=== PATIENT | female | born 1975 | race Caucasian/White ===

== ENCOUNTER → 2019-10-12 07:38 | Outpatient (CLI) | payer OTHER, SELFPAY ==
--- NOTE | ~2019-10-12 | US_ITS ---
EXAMINATION: US abdomen complete DATE: 10/12/2019 08:21 INDICATION: Right upper quadrant abdominal pain. TECHNIQUE: Multiple grayscale and Doppler ultrasound images of the abdomen were obtained. COMPARISON: CT 06/01/2018, 11/25/2017 FINDINGS: Abdominal aorta is normal in caliber. Inferior vena cava is normal. The visualized portions of the head, body, and tail of the pancreas are normal. The liver is normal without focal lesion. Th ere is normal flow in main portal vein. The gallbladder is normal in size. No gallstones or gallbladd er wall thickening. There was no sonographic Fuchs sign. The common duct is mildly dilated to 7 mm. The kidneys are normal in size. There is an 11 mm stone in right renal pelvis with mild right hydrone phrosis. The spleen is normal in size. IMPRESSION: 1. 11 mm stone in right renal pelvis with mild right hydronephrosis, stable from 06/01/2018. 2. Mild dilatation of the common duct, stable from 11/25/2017. Correlate with liver function tests to determine if this finding is clinically significant. Reviewed, dictated and finalized at location A. IMPRESSION: 1. 11 mm stone in right renal pelvis with mild right hydronephrosis, stable fro 06/01/2018. 2. Mild dilatation of the common duct, stable from 11/25/2017. Correlate with li valerie function tests to determine if this finding is clinically significant.
== END ==
PROVIDERS: PCP Family Medicine Adolescent Medicine; Visit Provider Family Medicine Adolescent Medicine
DX: R10.11 Right upper quadrant pain (principal)
CPT/HCPCS: 76700

== ENCOUNTER 2019-11-14 11:21 | Outpatient (CLI) | payer OTHER, SELFPAY ==
--- NOTE | ~2019-11-14 | CT_ITS ---
EXAMINATION: CT abdomen pelvis w con EXAM DATE: 11/14/2019 11:49 INDICATION: Endometrial cancer, right flank pain. History kidney stones. Total hysterectomy. TECHNIQUE: Spiral CT of the abdomen and pelvis was performed following intravenous injection of 100 m L Omnipaque 350. Axial, coronal and sagittal images were reviewed. The dose-length product (DLP) fo r this examination was 1090.12 mGy-cm. The exposure was tailored according to patient size (auto mA exposure control), and iterative reconstruction (ASIR) was used as additional dose reduction techniqu e. Comparison is made to prior examination from 06/01/2018. FINDINGS: The liver, spleen, adrenal glands and pancreas are unremarkable. Gallbladder is unremarkab le. No biliary obstruction. There is a right renal pelvic stone measuring 1.2 cm with persistent mil d to moderate caliectasis. No adjacent inflammation or hydroureter. Potentially could be partially or intermittently obstructing. Similar appearance on the prior exam. Patient has had hysterectomy. The bladder is unremarkable. There is no retroperitoneal or pelvic lymphadenopathy. The appendix is normal. The stomach and small bowel are unremarkable. There is expected amount of c olonic stool. No free intraperitoneal gas. The heart is normal in size. There are no pericardial or pleural effusions. The lung bases are unremarkable. There is sclerotic focus in the left iliac b one measuring 1.5 cm, with decrease in density but stable in size compared to prior studies, likely b enign finding. IMPRESSION: Persistent large right renal pelvic stone, mild to moderate right-sided caliectasis. Coul d be intermittently or partially obstructing. Reviewed, dictated and finalized at location A. IMPRESSION: Persistent large right renal pelvic stone, mild to moderate right-s ided caliectasis. Could be intermittently or partially obstructing.
[2019-11-14 11:39] LABS: Estimated Glomerular Filt Rate > 60
== END 2019-11-14 11:22 ==
PROVIDERS: PCP Family Medicine Adolescent Medicine
DX: C54.1 Malignant neoplasm of endometrium (principal); N20.1 Calculus of ureter
CPT/HCPCS: 36415; 74177; Q9967

== ENCOUNTER → 2022-04-03 09:09 | Outpatient (CLI) | payer OTHER, SELFPAY ==
--- NOTE | ~2022-04-03 | XR_ITS ---
Thoracic spine: Clinical Indication: Pain AP and lateral views were performed. No fracture is seen. There is normal alignment of the vertebrae. The intervertebral disc spaces appe ar normal. Paravertebral soft tissues appear normal. Impression: No significant abnormalities noted. Reviewed, dictated and finalized at [facility]. OWS SYSTEMS ADMIN Impression: No significant abnormalities noted.
--- NOTE | ~2022-04-03 | XR_ITS ---
Lumbosacral Spine: AP and lateral views Clinical History: Pain Findings: The normal lordotic curve is maintained. The vertebral bodies and posterior elements are i ntact. The intervertebral disc spaces are preserved. The sacroiliac joints are normally outlined. Impression: No significant abnormality. Reviewed, dictated and finalized at [facility]. LAINT INVESTIGATOR Impression: No significant abnormality.
== END ==
PROVIDERS: PCP Family Medicine Adolescent Medicine; Visit Provider Physician Assistant
DX: M54.9 Dorsalgia, unspecified (principal)
CPT/HCPCS: 72072; 72100

== ENCOUNTER → 2022-04-07 07:42 | Outpatient (CLI) | payer OTHER, SELFPAY ==
--- NOTE | ~2022-04-07 | US_ITS ---
Ultrasound of the anterior abdominal wall CLINICAL HISTORY: Umbilical discharge TECHNIQUE: Real-time sonographic imaging of the umbilicus was performed. FINDINGS: No sonographic abnormality seen at the umbilicus region. No mass lesion or fluid collection identified. No sinus tract or discharge identified. IMPRESSION: No sonographic abnormality about the umbilicus identified. Consider CT scan to further evaluate for u andry remnant/abnormality, or other fistula. Reviewed, dictated and finalized at [facility]. ENSATION AND BENEFITS ANALYST IMPRESSION: No sonographic abnormality about the umbilicus identified. Consider CT scan to further evaluate for urachal remnant/abnormality, or other fistula.
== END ==
PROVIDERS: PCP Family Medicine Adolescent Medicine; Visit Provider Physician Assistant
DX: K42.9 Umbilical hernia without obstruction or gangrene (principal)
CPT/HCPCS: 76705

== ENCOUNTER 2023-02-02 12:12 | Emergency (ER) | payer OTHER, SELFPAY ==
--- NOTE | ~2023-02-02 | XR_ITS ---
EXAMINATION: XR elbow RT min 3V DATE: 02/02/2023 12:28 INDICATION: Right elbow pain post fall TECHNIQUE: Anteroposterior, two oblique and lateral views of the right elbow were obtained. COMPARISON: None. FINDINGS: Alignment is normal. No fracture or joint effusion. Joint spaces are normal. Mild soft tissue swellin g posterior to the proximal ulna. IMPRESSION: 1. No right elbow joint effusion or osseous abnormality. Reviewed, dictated and finalized at location A.
--- NOTE | 2023-02-02 12:16 | ED.UPPEXIN ---
HPI - Extremity Injury (Upper) General Chief Complaint: Extremity Injury, Upper Stated Complaint: Rt Arm Pain Due To Fall Time Seen by Provider: 02/02/23 12:16 Source: patient Mode of arrival: ambulatory Limitations: no limitations History of Present Illness HPI narrative: Camilla is a 47-year-old female patient presenting to the clinic today with complaints of right arm/elbow pain after falling. She reports she fell around 10:00 a.m. this morning when taking a picture. Landed on her right elbow. Is having pain to the proximal right forearm and the elbow. Denies any other known injury. Did not hit her head. No loss of consciousness. Related Data Allergies Allergy/AdvReac Type Severity Reaction Status Date / Time lisinopril AdvReac Numbness Verified 04/02/22 09:18 Z-PAC AdvReac Hives Uncoded 04/02/22 09:18 Review of Systems Review of Systems: Pertinent positives per HPI. Patient denies any fever, chills, rash, headache, visual changes, dizziness, cough, runny nose, sore throat, shortness of breath, chest pain, palpitations, nausea, vomiting, diarrhea, constipation, abdominal pain, or any urinary issues. PMFSH Past Medical History Medical History History of ovarian cancer Surgical History Surgical History History of History of lithotripsy History of total hysterectomy Family History Family History Father FH: prostate cancer Mother Diabetes mellitus Hypertension Social History Social History Smoking status: Never smoker Alcohol intake: current Alcohol use details: Rarely on the weekends. Substance use: never Living arrangements: with family Occupation/Education: occupation Additional occupation/education comments: import manager Gender identity (if verbalized by the patient): Female Comments At the time of my signature, I reviewed and agree with the nursing past medical, surgical, social, and family history. There is no relevant family history pertinent to the patient complaint. Exam Narrative: General: Well-developed, well nourished, in no apparent distress Head: Normocephalic, atraumatic. Cardio: Regular rate and rhythm, s1 and s2 normal, no murmur appreciated. Resp: Clear to auscultation bilaterally, no rhonchi, rales, wheezing or rubs. Musculoskeletal: No deformity, tender to palpation over the proximal posterior forearm and elbow, grossly normal range of motion, muscle strength strong and equal, peripheral pulse strong, no edema, no cyanosis, normal gait and station Course Course Emergency Course: Portions of this record may have been created with voice recognition software. Level of Care: Express Care Visit Vital Signs Vital signs: Vital signs reviewed MDM - Extremity Injury (Upper) MDM Narrative Medical decision making narrative: At the time of visit patient is resting comfortably on exam table. X-ray of the right elbow was performed and was negative for any sign of fracture or malalignment. I suspect patient has soft tissue injury/contusion to the right forearm and elbow. Supportive measures were discussed with the patient she voiced understanding discharge instructions agrees to treatment plan. Differential Diagnosis Differential diagnosis: Likely other (Contusion, elbow fracture, proximal radial fracture, soft tissue injury) Discharge Plan Discharge Clinical Impression: Contusion of elbow and forearm Qualifiers: Encounter type: initial encounter Laterality: right Qualified Code(s): S50.11XA - Contusion of right forearm, initial encounter Patient Disposition: Home, Self-Care Condition: Stable Instructions: Antibiotic Form, Contusion in Adults (ED) Additional Instructions: X-rays negative for any sign
[2023-02-02 12:23] VITALS: BP 190/97; PULSE 75; RESP 18; TEMP 36.2; O2SAT 98
== END 2023-02-02 12:59 | disposition home or self-care (01) ==
PROVIDERS: Emergency Provider Nurse Practitioner Family; PCP Family Medicine Adolescent Medicine
DX: S50.11XA Contusion of right forearm, initial encounter (principal); W19.XXXA Unspecified fall, initial encounter; Z85.43 Personal history of malignant neoplasm of ovary
CPT/HCPCS: 73080; 99213; G0463

== ENCOUNTER 2023-05-06 12:52 | Emergency (ER) | payer OTHER, SELFPAY ==
--- NOTE | ~2023-05-06 | XR_ITS ---
XR wrist LT min 3V DATE: 05/06/2023 13:17 INDICATION: Fell 2 weeks ago. Distal ulnar and wrist pain TECHNIQUE: 4 views of left wrist COMPARISON: None FINDINGS: No fracture, dislocation, periosteal reaction or bone destruction, joint space narrowing, e rosive change or chondrocalcinosis. IMPRESSION: Negative Reviewed, dictated and finalized at location L. OR HYDROGEOLOGIST IMPRESSION: Negative
--- NOTE | 2023-05-06 13:08 | ED.GENADULT ---
HPI - General Adult General Chief complaint: Extremity Injury, Upper Stated complaint: Fall Injury, Left Wrsit Pain Source: patient, RN notes reviewed and old records reviewed Mode of arrival: ambulatory Limitations: no limitations History of Present Illness HPI narrative: 47-year-old female presents to [facility] with complaints of left wrist pain and swelling this started 10 days ago after falling on the ice. Patient states has tried splinting, ibuprofen, ice with no relief. Patient denies any other injury. MD complaint: wrist pain Onset (ago): day(s) (10) Radiation: non-radiation Severity: moderate Pain Consistency: constant Relieving factors: cold therapy Exacerbating factors: none Treatments prior to arrival: NSAID Related Data Allergies Allergy/AdvReac Type Severity Reaction Status Date / Time lisinopril AdvReac Numbness Verified 04/02/22 09:18 Z-PAC AdvReac Hives Uncoded 04/02/22 09:18 Review of Systems Constitutional: Constitutional: Reports no additional constitutional complaints, Denies body ache(s), Denies chills, Denies fatigue, Denies fever(s) and Denies headache(s) Eyes: Eyes: Reports no additional eye complaints and Denies blurry vision ENT: Reports system reviewed and no additional complaints, except as documented, Denies vertigo, Denies dizziness, Denies ear discharge, Denies otalgia, Denies facial pain, Denies headache(s), Denies nasal congestion, Denies nasal discharge, Denies sinus pain, Denies sinus pressure and Denies sore throat Cardiovascular: Cardiovascular: Reports no additional cardiovascular complaints, Denies chest pain, Denies chest pain at rest, Denies rapid heart rate and Denies dyspnea Respiratory: Respiratory: Reports no additional respiratory complaints, Denies chest congestion, Denies cough, Denies pain on inspiration, Denies pain with cough and Denies dyspnea Gastrointestinal: Gastrointestinal: Denies abdominal pain, Denies diarrhea, Denies nausea and Denies vomiting Musculoskeletal: Comments: left wrist pain and swelling Integumentary/Breasts: Skin/Breast: Denies rash Neurologic: Reports system reviewed and no additional complaints, except as documented, Denies vertigo, Denies dizziness and Denies headache(s) Endocrine: Endocrine: Denies fatigue PMF Past Medical History Medical History History of ovarian cancer Surgical History Surgical History History of History of lithotripsy History of total hysterectomy Family History Family History Father FH: prostate cancer Mother Diabetes mellitus Hypertension Social History Social History Smoking status: Never smoker Alcohol intake: current Alcohol use details: Rarely on the weekends. 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 There is no relevant family history pertinent to the patient complaint. Exam Const: General: cooperative, healthy appearing, no acute distress and well nourished Nutritional Appearance: well nourished Orientation/consciousness: patient oriented x3 Limitations: no limitations HENMT: Head: normal to inspection and normocephalic Ears: external ears normal Face/Nose/Sinus: normal facial exam Face and sinus: normal facial exam Mouth: Yes Normal oral and palatal mucosa present, Yes oropharynx normal and Yes moist mucous membranes Throat: tonsils normal, uvula midline and no uvular edema Eyes: General: appearance normal, both eyes and all related structures
[2023-05-06 13:12] VITALS: BP 181/100; PULSE 72; RESP 20; TEMP 36.8; O2SAT 98
== END 2023-05-06 13:30 | disposition home or self-care (01) ==
PROVIDERS: Emergency Provider Registered Nurse; PCP Family Medicine Adolescent Medicine
DX: S63.502A Unspecified sprain of left wrist, initial encounter (principal); W00.9XXA Unspecified fall due to ice and snow, initial encounter; Z85.43 Personal history of malignant neoplasm of ovary; Z90.710 Acquired absence of both cervix and uterus
CPT/HCPCS: 73110; 99213; G0463

== ENCOUNTER 2025-02-07 09:41 | Outpatient (CLI) | payer OTHER, SELFPAY ==
--- NOTE | ~2025-02-07 | US_ITS ---
US abdomen limited INDICATION: Elevated liver enzymes PROCEDURE: Realtime right upper abdominal ultrasound. COMPARISON: No prior studies for comparison. FINDINGS: Pancreas is obscured by bowel gas. Liver echotexture is increased, consistent with fatty infiltration. There is normal directional flow in the portal vein. The gallbladder is normal without stones, gallbladder wall thickening or pericholecystic fluid. Common bile duct measures 6 mm. No sonographic Fuchs's sign. IMPRESSION: 1: Fatty infiltration of the liver. Reviewed, dictated and finalized at location O. ONAL LINES ADVISOR
== END 2025-02-07 09:42 | disposition home or self-care (01) ==
PROVIDERS: PCP Nurse Practitioner Family; Visit Provider Nurse Practitioner Family
DX: R74.01 Elevation of levels of liver transaminase levels (principal); K76.0 Fatty (change of) liver, not elsewhere classified
CPT/HCPCS: 76705

== ENCOUNTER 2025-03-19 00:52 | Day surgery (SDC) | payer OTHER, SELFPAY ==
[2025-02-27 13:58] VITALS: BMI 43.7
--- OUTSIDE RECORDS SUMMARY | 2025-03-19 00:54 | XMS_ITS | Clinical Summary ---
Author Organization [facility] [employer] Address [address] [place] [address] Care Team Providers Care Health Program Director Name Role Phone Zander Araujo MD Primary Care Provider + Source Comments [facility] [employer],[facility] Affiliates and Associated Physician Practices is amultiple site organization consisting of ambulatory clinics and hospital sitesin [place], [place], [place] and [place]. This disclosure is being madepursuant to the Care Everywhere program and may not contain all information available regarding this patient. Last updated 17.[facility] [employer] Allergies Active Allergy Reactions Criticality Noted Date Comments Azithromycin Urticaria,Rash Medium 07/22/2017 Latex Rash Medium 08/19/2020 Medications * Be aware that medications may not be up to date on this document. Alwaysverify current medications with the patient. PARoxetine (PAXIL) 40 MG tablet Take 1 (one) tablet by mouth once daily Active metoprolol succinate XL 24hr (TOPROL XL) 50 MG tablet Take 1 (one) tablet by mouth once daily 10/03/2019 Active Active Problems Problem Noted Date Diagnosed Date Surgical menopause 11/07/2018 Bladder spasm 05/19/2018 S/P total hysterectomy and B SO (bilateral salpingo-oophorectomy) 09/16/2017 Endometrial cancer 08/11/2017 Obesity (BMI 35.0-39.9 without comorbidity) 12/2017 Family History Medical History Relation Name Comments Cancer - Prostate Father Relation Name Status Comments Father Social History Tobacco Use Types Packs/Day Years Used Date Smoking Tobacco: Never Smokeless Tobacco: Never Tobacco Cessation:Counseling Given: Not Answered Alcohol Use Standard Drinks/Week Comments Yes 2 (1 standard drink = 0.6 oz pur e alcohol) WEEKLY PHQ-2 Answer Date Recorded PHQ2 TOTAL SCORE 4 08/18/2022 Comments No Sex and Gender Information Value Date Recorded Sex Assigned at Not on file Legal Sex Female 3:25 PM CDT Gender Identity Not on file Sexual Orientation Not on file Last Filed Vital Signs Vital Sign Reading Time Taken Comments Blood Pressure 112/74 08/24/2022 10:41 AM CDT Pulse 65 08/12/2017 7:53 AM CDT Temperature 36.8 C (98.2 F) 08/12/2017 7:53 AM CDT Respiratory Rate 18 08/12/2017 7:53 AM CDT Oxygen Saturation 97% 08/12/2017 7:53 AM CDT Inhaled Oxygen Concentration - - Weight 118.8 kg (261 lb 12.8 oz) 2022 10:41 AM CDT Height 167.6 cm (5' 6) 08/24/2022 10:4 1 AM CDT Body Mass Index 42.26 08/24/2022 10:41 AM CDT Plan of Treatment Health Maintenance Due Date Last Done Comments COLOGUARD (AGES 45-75) - COL ON CA SCREENING 1977 COLON MONITORING 1977 COLONOSCOPY - COLON CA SCREENING 1977 CT COLONOGRAPHY - COLON CA SCREENING 1977 Colorectal Cancer Screening 1977 FIT - COLON CA SCREENING 1977 FLEX SIG - COLON CA SCREENING 1977 LIPID TESTING 1977 MAMMOGRAM 1977 HIV SCREENING 1992 HEPATITIS C SCREENING 11/30/1995 DTAP/TDAP/TD VACCINES (1 - Tdap) 1996 HEPATITIS B VACCINE (1 of 3 - 19+ 3-dose series) 1996 SCREENING FOR DIABETES 08/24/2022 08/12/2017 DEPRESSION SCREENING 04/05/2024 COVID-19 VACCINE (1 - 2024-2 6 season) 2024 INFLUENZA VACCINE (#1) 2024 ZOSTER VACCINE (1 of 2) 12/05/2027 HIB VACCINE Aged Out No longer eligi ble based on patient's age to complete this topic HPV VACCINE Aged Out No longer eligi ble based on patient's age to complete this topic MENINGOCOCCAL (Group B) VACC INE SHARED DECISION-MAKING Aged Out No longer eligibl e based on patient's age to complete this topic MENINGOCOCCAL GROUPS A/C/Y/W VACCINE Aged Out No longer eligible b ased on patient's age to complete this topic PNEUMOCOCCAL VACCINE Aged Out No long er eligible based on patient's age to complete this topic Medical Devices Implanted Type Area Paper Slitter Device Identifier Shelf Expiration Date Model / Serial / Lot Andre Absorbable Hemostatic Particles Implanted:Qty: 1 on 08/11/2017 by Brayan Garza MD at [facility] 05/02/2022 [id number] / / [id number] Procedures Procedure Name Priority Date/Time Associated Diagnosis Comments BASIC METABOLIC PANEL (CALCIUM TOTAL) AM Draw 08/12/2017 4:10 AM CDT Endometrial cancer from Last 3 Months or Most Recently Relevant to Health Maintenance Results * (ABNORMAL) BASIC METABOLIC PANEL (CALCIUM TOTAL) (08/12/2017 4:10 AM CDT) Glucose 111(H) 74 - 106 mg/dL 08/12/2017 5:[address] [facility] Sodium 137 136 - 145 mmol/L 08/12/2017 5:[address] [facility] Potassium 3.6 3.5 - 5.1 mmol/L 08/12/2017 5:[address] [facility] Chloride 104 98 - 107 mmol/L 08/12/2017 5:[address] [facility] CO2 24 22 - 31 mmol/L 08/12/2017 5:[address] [facility] Calcium 8.5 8.5 - 10.1 mg/dL 08/12/2017 5:[address] [facility] Anion Gap 9 8 - 16 mmol/L 08/12/2017 5:[address] [facility] BUN 10 7 - 21 mg/dL 08/12/2017 5:[address] [facility] Creatinine 0.91 0.50 - 1.30 mg/dL 08/12/2017 5:[address] [facility] eGFR by MDRD >60 >60 mL/min/1.7 3m2 08/12/2017 5:[address] [facility] eGFR by MDRD >60 >60 mL/min/1.7 3m2 08/12/2017 5:[address] [facility] Blood BLOOD SPECIMEN / Unknown Lab Venipuncture / Unknown 08/12/2017 4:10 AM CDT 08/12/2017 4:42 AM CDT Brayan Garza MD LAB - CHEMISTRY ORDERABLES Final Result [facility] [address] [place] [address] from Last 3 Months or Most Recently Relevant to Health Maintenance Insurance [facility] Advance Directives * Full Code (Latest Code Status on File) Date Activated Date Inactivated Comments 08/11/2017 4:36 PM 08/12/2017 1:30 PM Care Teams Health Program Director Relationship Specialty Start Date End Date Zander Araujo MD [address] [address] PCP - General 07/14/17
--- OUTSIDE RECORDS SUMMARY | 2025-03-19 00:54 | XMS_ITS | Clinical Summary ---
Author Organization [facility] Address [address] [place] [address] Care Team Providers Care Modeling Teacher Name Role Phone Zander Araujo MD Primary Care Provider [phone] Allergies Active Allergy Reactions Criticality Noted Date Comments Azithromycin Rash Low 08/19/2020 Latex Rash Low 08/19/2020 Medications PARoxetine 40 MG tablet Take 40 mg by mouth daily. Active metoprolol succinate ER 50 MG 24 hr tablet Take 50 mg by mouth daily. 10/03/2019 Active Active Problems Problem Noted Date Diagnosed Date Aftercare following surgery 09/16/2021 Immunizations Immunization Administration Dates Next Due Tdap (Boostrix) 08/18/2021 Family History Medical History Relation Comments Cancer Father Diabetes Mother Hypertension Mother Relation Status Comments Father Alive Mother Alive Social History Tobacco Use Types Packs/Day Years Used Date Smoking Tobacco: Never Smokeless Tobacco: Never Alcohol Use Standard Drinks/Week Comments Not Currently 0 (1 standard drink = 0.6 oz pur e alcohol) Comments No Sex and Gender Information Value Date Recorded Sex Assigned at Not on file Legal Sex Female 5:55 PM STERNMAN Gender Identity Not on file Sexual Orientation Not on file Last Filed Vital Signs Vital Sign Reading Time Taken Comments Blood Pressure 138/87 08/18/2021 3:55 PM CDT Pulse 65 08/18/2021 3:55 PM CDT Temperature 36.2 C (97.2 F) 08/18/2021 3:55 PM CDT Respiratory Rate 18 08/18/2021 3:55 PM CDT Oxygen Saturation 96% 08/18/2021 3:55 PM CDT Inhaled Oxygen Concentration - - Weight 113.4 kg (250 lb) 10/20/2021 10:11 AM CDT Height 160 cm (5' 3) 10/20/2021 10:11 AM CDT Body Mass Index 44.29 10/20/2021 10:11 AM CDT Plan of Treatment Health Maintenance Due Date Last Done Comments Colorectal Cancer Screening Colonoscopy (10 Years) 1977 Annual Physical 1980 Hepatitis C 12/05/1995 Hepatitis B Vaccines (1 of 3 - 19+ 3-dose series) 1996 Mammogram Screening 2017 COVID-19 Vaccine (1 - 2024-2 6 season) 2024 Influenza Adult (#1) 2025 DTaP, Tdap and Td Vaccines ( 2 - Td or Tdap) 08/19/2031 08/18/2021 Hepatitis A Vaccines Aged Out No long er eligible based on patient's age to complete this topic Meningococcal B Vaccine Aged Out No l onger eligible based on patient's age to complete this topic Meningococcal Vaccine Aged Out No dominik malik eligible based on patient's age to complete this topic Pneumococcal Vaccine: Pediat rics (0 to 5 Years) and At-Risk Patients (6 to 49 Years) Aged Out No longer eligi ble based on patient's age to complete this topic RSV Immunizations Under 20 Months Aged Out No longer eligible based on patient's age to complete this topic Insurance [facility] [employer] Care Teams Modeling Teacher Relationship Specialty Start Date End Date Zander Araujo MD [address] [place] [id number] PCP - General FAMILY PRACTICE 08/19/20
[2025-03-19 11:31] VITALS: BP 143/94; PULSE 76; RESP 18; TEMP 36.4; O2SAT 97
[2025-03-19] MEDS: LACTATED RINGERS 1,000 ML 150 ML IV CONT (11:39)
--- NOTE | 2025-03-19 12:24 | WPDANESEPPF ---
Anes - Initial Pre Proc Eval Procedure: Operation Date: 03/19/25 14:00 Proposed Procedures p EGD & Screening Colonoscopy - Constantino Yan MD Date/Time: 03/19/25 12:24 Surgeon: Constantino Yan MD Pre Op Diagnosis: Encounter for screening for malignant neoplasm of Patient Data Age: 49 Gender: F Height: 1.6 m Weight: 110.1 kg Last Vital Signs Temp 97.6 F 03/19/25 11:31 Pulse 76 03/19/25 11:31 Resp 18 03/19/25 11:31 BP 143/94 H 03/19/25 11:31 Pulse Ox 97 03/19/25 11:31 O2 Del Method Room Air 03/19/25 11:31 Allergies Allergy/AdvReac Type Severity Reaction Status Date / Time latex Allergy Mild Itching Verified 03/19/25 11:29 lisinopril AdvReac Numbness Verified 03/19/25 11:29 Z-PAC AdvReac Mild Hives Uncoded 02/27/25 14:09 Home Medications ?Medication ?Instructions ?Recorded ?Confirmed ?Type magnesium glycinate 120 mg (as 500 mg PO DAILY 01/31/25 03/19/25 History glycinate) capsule pantoprazole 40 mg tablet,delayed See Rx Instructions .Route 01/31/25 03/19/25 Rx release .COMPLEX #90 tabs soybean, fermented 50 mg capsule 50 mg PO DAILY 01/31/25 03/19/25 History (Nattokinase) B.coagulan,subtilis 1 bill. 1 tablet PO DAILY 02/27/25 03/19/25 History cell-inulin 1 gram-vit C 15 mg chew tablet (Culturelle Probiotic-Prebiotic) Patient hx anesthesia problems: none Family hx anesthesia problems: none Results Review: All pre-operative results and documents have been reviewed as part of the pre-operative evaluation. [facility] Past Medical History Medical History History of ovarian cancer Surgical History Surgical History History of lithotripsy History of History of total hysterectomy Family History Family History Father FH: prostate cancer Mother Diabetes mellitus Hypertension Social History Social History Smoking status: Never smoker Alcohol intake: never Alcohol use details: Rarely on the weekends. Substance use: never Substance use type: does not use Living arrangements: with family Occupation/Education: occupation Additional occupation/education comments: manager skilled Gender identity (if verbalized by the patient): Female Spiritual care concerns: No Anes - Eval Final PreProcedure Day of Procedure 03/19/25 12:24 Patient weight: obese Lungs: normal air movement Airway: Mallampati scale class II Neurological: alert and oriented Last oral intake: >/= 8 hours ASA classification: II Emergent: no Anesthetic plan: proceed Anesthesia type and monitoring: general GIVS and standard monitoring Results Review: All pre-operative results and documents have been reviewed as part of the pre-operative evaluation. Hyperlipidemia, GERD, NAFLD, pt has GERD/dysphagia, overall can walk 1-2 fos, no cp or sob. Informed Consent: The patient's anesthetic plan and its attendant risks and benefits were discussed with the patient/family/POA. Questions were solicited and answers provided to the satisfaction of the patient/family/POA.
--- NOTE | 2025-03-19 13:13 | PM.HPGS ---
History of Present Illness History of Present Illness Consent: Risks, benefits, and alternatives have been discussed and questions answered. Patient agrees to proceed with procedure. Chief complaint: Encounter for screening for malignant neoplasm of Narrative: Camilla Palumbo is a 49 year old female here for first screening colonoscopy and egd, h/o gerd for years and dysphagia recently started on protonix with some improvement. Review of Systems Review of Systems: All systems reviewed & are unremarkable except as noted in HPI and below PMFSH Past Medical History Medical History (Updated 03/19/25 @ 13:14 by Constantino Yan MD) Colon cancer screening History of ovarian cancer Surgical History Surgical History History of lithotripsy History of History of total hysterectomy Family History Family History Father FH: prostate cancer Mother Diabetes mellitus Hypertension Social History Social History Smoking status: Never smoker Alcohol intake: never Alcohol use details: Rarely on the weekends. 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 1 tablet PO DAILY 02/27/25 03/19/25 History cell-inulin 1 gram-vit C 15 mg chew tablet (Culturelle Probiotic-Prebiotic) Allergies Allergy/AdvReac Type Severity Reaction Status Date / Time latex Allergy Mild Itching Verified 03/19/25 11:29 lisinopril AdvReac Numbness Verified 03/19/25 11:29 Z-PAC AdvReac Mild Hives Uncoded 11/25/25 14:09 Vital Signs Vital Signs - 24 hr 03/19/25 11:31 Temperature 97.6 F Pulse Rate 76 Respiratory Rate 18 Blood Pressure 143/94 H Pulse Oximetry 97 Oxygen Delivery Room Air Exam Const: General: comfortable and no acute distress HENMT: Face/Nose/Sinus: Normal nares present Eyes: General: appearance normal, both eyes and all related structures Neck: Neck: no JVD Resp: Auscultation: clear to auscultation bilaterally Cardio: Rate: regular rate Rhythm: regular rhythm GI: Inspection: non-distended GI Palp: Yes Soft to palpation Skin: General skin exam: normal color Psych: Mental Status: mental status grossly normal Assessment and Plan Assessment and plan (1) Acid reflux: Code(s): K21.9 - Gastro-esophageal reflux disease without esophagitis Status: Acute Assessment and Plan: egd (2) Colon cancer screening: Code(s): Z12.11 - Encounter for screening for malignant neoplasm of colon Status: Acute Assessment and Plan: colonoscopy
[2025-03-19] MEDS: BENZOCAINE (*SP) 60 ML SPRAY CAN (HURRICAINE) 1 SPRAY MUCOUS MEM (13:15)
--- NOTE | 2025-03-19 13:23 | S_PTH ---
PATIENT: Camilla Palumbo LOC: [facility]#:[id number] AGE/SX: 49/F ROOM: RE03/19/[address]: Constantino Yan MD : 1975 BED: DIS: 03/19/2025 SPEC #: [id number] RECD: 03/19/25 14:21 STATUS: COREEN REKaro #: [id number] KEN: 03/19/25 13:[address]: Constantino Yan DEPT: [facility] Surgical RECD BY: Tasha Saini ENTERED: 03/19/25 14:22 SP TYPE: Surgical OTHR DR: Nely Ho, LEVON Tissues: A - Gastric Biopsy B - Esophageal Biopsy C - Esophageal Biopsy Procedures: Hematoxylin and Eosin Stain Gross and Microscopic Level 4
--- NOTE | 2025-03-19 13:29 | SUR.OPER ---
EGD END TIME 1325 COLONOSCOPY START TIME 1325
[2025-03-19 13:42] VITALS: BP 114/80; PULSE 78; RESP 22; O2SAT 99
[2025-03-19 13:52] VITALS: BP 130/82; PULSE 70; RESP 20; O2SAT 99
[2025-03-19 14:02] VITALS: BP 126/81; PULSE 67; RESP 20; O2SAT 99
== END 2025-03-19 14:14 | disposition home or self-care (01) ==
PROVIDERS: PCP Nurse Practitioner Family; Referring Provider Nurse Practitioner Family; Visit Provider Internal Medicine Gastroenterology
PROC: 0DJ08ZZ Inspection of Upper Intestinal Tract, Via Natural or Artificial Opening Endoscopic (ICD-10-PCS; CPT 45378; principal; 2025-03-19 14:00)
DX: Z12.11 Encounter for screening for malignant neoplasm of colon (principal); K57.30 Diverticulosis of large intestine without perforation or abscess without bleeding; K64.8 Other hemorrhoids; K21.9 Gastro-esophageal reflux disease without esophagitis; R13.10 Dysphagia, unspecified; E66.9 Obesity, unspecified; Z68.41 Body mass index [BMI] 40.0-44.9, adult
CPT/HCPCS: 45378; 43239; 88305; J2003; J2704; J7120